=== PATIENT | male | born 1940 | race Caucasian/White ===

== ENCOUNTER 2016-12-30 09:54 | Observation (INO) | payer MEDICARE ==
[~2016-12-30] VITALS: Ht 180.3 cm; Wt 80.0 kg
[~2016-12-30 09:54] MED LIST: AMIO200T PO; CEFP500T PO; MAGN400T PO; METO25 PO; PERC5TAB12 PO; RISP.25 PO; RIVA10 PO
[2016-12-30 09:55] VITALS: BP 213/134; PULSE 88; RESP 20; TEMP 97.6; O2SAT 96
[2016-12-30 10:07] VITALS: O2SAT 100
[2016-12-30 10:10] VITALS: BP_SYST 104; BP_SYST 96; BP_DIAS 56; BP_DIAS 65; PULSE 70; RESP 15; O2SAT 100
[2016-12-30] MEDS ORDERED: ASPI81CH CHEW (10:12)
[2016-12-30] MEDS ORDERED: GABA300C5 PO (10:12)
[2016-12-30] MEDS ORDERED: TAMS0.4C4 PO (10:12)
[2016-12-30] MEDS ORDERED: SODIUM CHLORIDE 0.9% FLUSH 10 ML FLUSH IVF PRN (10:15)
[2016-12-30] MEDS ORDERED: ASPIRIN 81 MG CHEW TAB PO ONE (10:15)
--- NOTE | 2016-12-30 10:23 | PD ---
HPI Chief Complaint: Cardiac Complaint Time Seen by Provider: 10:04 Travel History International Travel<30 days: No Contact w/Intl Traveler<30days: No Traveled to known affect area: No History of Present Illness HPI 76-year-old male with history of mitral valve repair, here for evaluation of an episode of chest discomfort, lightheadedness, palpitations, and generalized weakness. The episode occurred about an hour ago while at work. He works at [employer]. He states he was not doing anything strenuous at onset of symptoms. Symptoms lasted for about 30 minutes. Upon arrival to the emergency department he states symptoms have improved. Currently he denies having any chest discomfort. He was short of breath during this episode, however is currently denying shortness of breath. No fevers, chills, cough, or recent illness. No paresthesias or motor deficits. No history of DVT or PE. He takes aspirin 81 mg daily. His insecticide sprayer is Dr. Stevenson. [facility] Past Medical History Atrial Fibrillation: Yes Autoimmune Disease: No Heart Rhythm Problems: Yes Cancer: Yes (SKIN) Cardiovascular Problems: Yes (cabg) Cerebrovascular Accident: Yes Diminished Hearing: No Hypertension: Yes Kidney Stones: Yes (2005,2007) Neurologic: Yes (TREMORS AT NIGHT STARTING AFTER THE OPERATION.) Respiratory: Yes Pneumonia: Yes Past Surgical History Abdominal Surgery: No Cardiac Surgery: Yes (MITRAL VAVLE REPLACE) Coronary Artery Bypass Graft: Yes Endocrine Surgery: Yes (KIDNEY STONES) Eye Surgery: Yes (LASIK PERMANENT CONTACTS) Genitourinary Surgery: Yes (LITHOTRIPSY) Valve Replacement: Yes (valve repair, maybe mitral ) Other Surgery: Yes (SKIN CA REMOVAL) Social History Alcohol Use: No Tobacco Use: No Substance Use: No Allergies-Medications (Allergen,Severity, Reaction): Coded Allergies: acetaminophen (Unverified Allergy, Mild, GI UPSET, 11/14/16) DENIES ALLERGY hydrocodone (Unverified Allergy, Mild, GI UPSET, 11/14/16) DENIES ALLERGY Reported Meds & Prescriptions Reported Meds & Active Scripts Active Reported Gabapentin 300 Mg Cap 300 Mg PO BID Tamsulosin (Tamsulosin HCl) 0.4 Mg Cap 0.4 Mg PO HS Aspirin 81 Mg Chew 81 Mg CHEW DAILY Review of Systems Except as stated in HPI: all other systems reviewed are Neg Physical Exam Narrative GENERAL: Well-developed, well-nourished, awake, alert, no apparent distress. SKIN: Focused skin assessment warm/dry. HEAD: Atraumatic. Normocephalic. EYES: Pupils equal and round. No scleral icterus. No injection or drainage. ENT: No nasal bleeding or discharge. Mucous membranes pink and moist. Perioral cyanosis. NECK: Trachea midline. No JVD. CARDIOVASCULAR: Regular rate and rhythm. Distal pulses brisk and equal bilaterally. RESPIRATORY: No accessory muscle use. Clear to auscultation. Breath sounds equal bilaterally. GASTROINTESTINAL: Abdomen soft, non-tender, nondistended. MUSCULOSKELETAL: No obvious deformities. No clubbing. No cyanosis. No edema. NEUROLOGICAL: Awake and alert. No obvious cranial nerve deficits. Motor grossly within normal limits. Normal speech. PSYCHIATRIC: Appropriate mood and affect; insight and judgment normal. Data Data Last Documented VS Vital Signs Date Time Temp Pulse Resp B/P (MAP) Pulse Ox O2 Delivery O2 Flow Rate FiO2 12/30/16 10:10 70 15 96/56 (69) 100 Room Air 104/65 (78) 12/30/16 09:55 97.6 Orders Orders Electrocardiogram (12/30/16 10:11) Basic Metabolic Panel (Bmp) (12/30/16 10:11) B-Type Natriuretic Peptide (12/30/16 10:11) Ckmb (Isoenzyme) Profile (12/30/16 10:11) Complete Blood Count With Diff (12/30/16 10:11) Magnesium (Mg) (12/30/16 10:11) Prothrombin Time / Inr (Pt) (12/30/16 10:11) Act Partial Throm Time (Ptt) (12/30/16 10:11) Troponin I (12/30/16 10:11) Chest, Single Ap (12/30/16 10:11) Ecg Monitoring (12/30/16 10:11) Iv Access Insert/Monitor (12/30/16 10:11) Oximetry (12/30/16 10:11) Aspirin Chew (Aspirin Chew) (12/30/16 10:15) Sodium Chloride 0.9% Flush (Ns Flush) (12/30/16 10:15) Arterial Blood Gas (Abg) (12/30/16 ) CKMB (12/30/16 10:15) CKMB% (12/30/16 10:15) Labs Laboratory Tests Test 12/30/16 10:14 12/30/16 10:15 Blood Gas Puncture Site LT RADIAL Blood Gas Patient Temperature 98.6 Blood Gas HCO3 20 mmol/L Blood Gas Base Excess -3.5 mmol/L Blood Gas Oxygen Saturation 96 % Arterial Blood pH 7.43 Arterial Blood Partial Pressure CO2 31 mmHg Arterial Blood Partial Pressure O2 91 mmHG Arterial Blood Oxygen Content 18.8 Vol % Arterial Blood Carboxyhemoglobin 1.1 % Arterial Blood Methemoglobin 0.4 % Blood Gas Hemoglobin 13.8 G/DL Blood Gas Inspired Oxygen 21 % White Blood Count 7.2 TH/MM3 Red Blood Count 4.48 MIL/MM3 Hemoglobin 14.5 GM/DL Hematocrit 43.1 % Mean Corpuscular Volume 96.0 FL Mean Corpuscular Hemoglobin 32.4 PG Mean Corpuscular Hemoglobin Concent 33.8 % Red Cell Distribution Width 13.5 % Platelet Count 164 TH/MM3 Mean Platelet Volume 9.0 FL Neutrophils (%) (Auto) 76.0 % Lymphocytes (%) (Auto) 13.5 % Monocytes (%) (Auto) 7.7 % Eosinophils (%) (Auto) 2.3 % Basophils (%) (Auto) 0.5 % Neutrophils # (Auto) 5.5 TH/MM3 Lymphocytes # (Auto) 1.0 TH/MM3 Monocytes # (Auto) 0.6 TH/MM3 Eosinophils # (Auto) 0.2 TH/MM3 Basophils # (Auto) 0.0 TH/MM3 CBC Comment DIFF FINAL Differential Comment Prothrombin Time 10.4 SEC Prothromb Time International Ratio 0.9 RATIO Activated Partial Thromboplast Time 27.3 SEC Blood Urea Nitrogen 15 MG/DL Creatinine 1.32 MG/DL Random Glucose 98 MG/DL Calcium Level 9.1 MG/DL Magnesium Level 2.1 MG/DL Sodium Level 140 MEQ/L Potassium Level 4.3 MEQ/L Chloride Level 110 MEQ/L Carbon Dioxide Level 25.0 MEQ/L Anion Gap 5 MEQ/L Estimat Glomerular Filtration Rate 53 ML/MIN Total Creatine Kinase 141 U/L Creatine Kinase MB 1.6 NG/ML Troponin I LESS THAN 0.02 NG/ML B-Type Natriuretic Peptide 84 PG/ML MDM Medical Decision Making Medical Screen Exam Complete: Yes Emergency Medical Condition: Yes Medical Record Reviewed: Yes Interpretation(s) EKG: Sinus, rate 72, normal axis, normal intervals, no acute ischemic abnormality, peaked T waves in V4 through V6. Differential Diagnosis ACS, pneumothorax with peritonitis, PE, pneumonia, metabolic abnormality, methemoglobinemia, anemia Narrative Course Initial vital signs show heart rate 88, blood pressure 213/134, pulse ox 96% on room air, oral temp of 97.6F. When the patient was brought back to her room from triage, repeat vital signs show blood pressure 96/56 in the right upper extremity, 104/65 in the left upper extremity. CBC is unremarkable. BMP is remarkable for creatinine 1.32, GFR 53 which is around his baseline. BNP is 84. Cardiac enzymes are negative. ABG shows pH 7.43, PCO2 31, PO2 91, methemoglobin 0.4%. Chest x-ray shows no acute cardio pulmonary disease. Patient was provided aspirin. On reassessment he reports he is feeling improved and is completely asymptomatic. He no longer has perioral cyanosis. Both patient and the patient's family were made aware of all findings. I believe he is a good candidate for further cardiac evaluation in the chest pain center. He is amenable to this plan. Diagnosis Primary Impression: Chest pain Qualified Codes: R07.9 - Chest pain, unspecified Admitting Information Admitting Physician Requests: Jasen Schmid MD Dec 30, 2016 10:23
[2016-12-30 10:27] LABS: BLOOD GAS BASE EXCESS -3.5 mmol/L (-2-2); BLOOD GAS CARBOXYHEMOGLOBIN 1.1 % (0-4); BLOOD GAS HCO3 20 mmol/L (22-26); BLOOD GAS METHEMOGLOBIN 0.4 % (0-2); BLOOD GAS O2 HGB SATURATION 96 % (90-100); BLOOD GAS OXYGEN CONTENT 18.8 Vol % (12.0-20.0); BLOOD GAS PCO2 31 mmHg (38-42); BLOOD GAS PO2 91 mmHG (61-120); BLOOD GAS TOTAL HGB 13.8 G/DL (12.0-16.0); CRITICAL VALUE NO; DRAW SITE LT RADIAL; FIO2 21 %; NUMBER OF ARTERIAL PUNCTURES 1; STAT YES; TEMP CORR TO 98.6; ULNAR PULSE PRESENT
[2016-12-30 10:33] LABS: AUTOMATED NEUTROPHIL # 5.5 TH/MM3 (1.8-7.7); BASOPHIL % 0.5 % (0.0-2.0); EOSINOPHIL # 0.2 TH/MM3 (0-0.4); EOSINOPHIL % 2.3 % (0.0-4.0); HEMATOCRIT 43.1 % (39.0-51.0); HEMO FLAGS DIFF FINAL; LYMPH % 13.5 % (9.0-44.0); MEAN CORPUSCULAR HEMOGLOBIN 32.4 PG (27.0-34.0); MEAN CORPUSCULAR HGB CONC 33.8 % (32.0-36.0); MONO % 7.7 % (0.0-8.0); PLATELET COUNT 164 TH/MM3 (150-450); RED BLOOD COUNT 4.48 MIL/MM3 (4.50-5.90); RED CELL DISTRIBUTION WIDTH 13.5 % (11.6-17.2); WHITE BLOOD COUNT 7.2 TH/MM3 (4.0-11.0)
[2016-12-30 10:42] LABS: APTT (PATIENT) 27.3 SEC (24.3-30.1); INTERNATIONAL NORMALIZED RATIO 0.9 RATIO; PROTHROMBIN TIME - PATIENT 10.4 SEC (9.8-11.6)
[2016-12-30 10:47] LABS: ANION GAP 5 MEQ/L (5-15); BLOOD UREA NITROGEN 15 MG/DL (7-18); CHLORIDE 110 MEQ/L (98-107); GLOMERULAR FILTRATION RATE 53 ML/MIN (>89); MAGNESIUM 2.1 MG/DL (1.5-2.5); POTASSIUM 4.3 MEQ/L (3.5-5.1); SODIUM (NA) 140 MEQ/L (136-145)
[2016-12-30 10:50] LABS: CREATINE KINASE 141 U/L (39-308)
--- NOTE | 2016-12-30 10:57 | RADRPT ---
EXAM DATE/TIME: 12/30/2016 10:31 [place] COMPARISON: No previous studies available for comparison. INDICATIONS : Lightheaded and dizzy with a feeling of syncope. MEDICAL HISTORY : None. SURGICAL HISTORY : Valve repair, unspecified. ENCOUNTER: Initial ACUITY: 1 day PAIN SCORE: 0/10 LOCATION: Bilateral chest FINDINGS: A single view of the chest demonstrates the lungs to be symmetrically aerated without evidence of mas s, infiltrate or effusion. Multiple intact median sternotomy wires. The heart size is normal.. [place] us structures are intact. CONCLUSION: No acute disease. Deena Dietrich MD on December 30, 2016 at 10:55 Board Certified Radiologist. This report was verified electronically.
[2016-12-30 11:03] LABS: CKMB 1.6 NG/ML (0.5-3.6)
--- NOTE | 2016-12-30 11:37 | EKG ---
Date Performed: 12/30/2016 Time Performed: 10:11:30 PTAGE: 76 years EKG: Sinus rhythm POSSIBLE LEFT ATRIAL ENLARGEMENT BORDERLINE ECG NO PREVIOUS TRACING DOCTOR: Thor Guerrero Interpretating Date/Time 12/30/2016 11:35:49
[2016-12-30] MEDS ORDERED: ACETAMINOPHEN 500 MG CPLT PO PRN (12:30)
[2016-12-30] MEDS ORDERED: ACETAMINOPHEN/HYDROcodone 325 MG/7.5 MG TAB PO PRN (12:30)
[2016-12-30] MEDS ORDERED: SODIUM CHLORIDE 0.9% FLUSH 5 ML FLUSH IVF PRN (12:30)
[2016-12-30] MEDS ORDERED: ONDANSETRON HCL 4 MG/2 ML VIAL IV PRN (12:30)
--- NOTE | 2016-12-30 12:33 | HHI.HP ---
[facility] Primary Care Physician Jorge Mayes M.D. Chief Complaint Heart racing History of Present Illness This is a 76-year-old male with history of mitral valve repair May 2012 that presents to ED via private vehicle with a complaint of feeling dizzy, diaphoretic, and sensation of heart racing. There was no syncopal event. This began while he was at work this morning. Symptoms last about 30 minutes. He was mildly short of breath. No nausea. Can't recall having these type symptoms in the past however upon review records she had atrial fibrillation postop and was on amiodarone for short time after that discharge. States that he really cannot recall much of what happened during that hospitalization. Denies having any chest discomfort with his symptoms today. Follows Dr. Stevenson. States he saw him this year. States he was told that his valve is looking good. Denies recent illnesses. Denies fevers or chills. Patient had heart catheterization prior to having the mitral valve repaired. Heart catheterization performed 05/01/[address] Stevenson revealed normal coronaries. Review of Systems General: Patient denies fevers, chills recent, and recent travel HEENT: Patient denies headache, sore throat, difficulty swallowing. Cardiovascular: Denies chest discomfort as mentioned above. He was feeling dizzy and diaphoretic. Had sensation of heart beating rapidly. No syncope. Respiratory: States it is mildly short of breath. Denies inspirational chest discomfort. Denies coughing wheezing or hemoptysis. GI: Patient denies nausea, vomiting, diarrhea, abdominal pain, bloody stools. Musculoskeletal: Patient denies joint pain or edema. Denies calf pain or edema. Neurovascular: Patient denies numbness, tingling, weakness in extremities. Denies headache. Endocrine: Denies polyuria and polydipsia. Hematologic: Denies easy bruising. Skin: Denies rash or itching. Past Family Social History Allergies: Coded Allergies: acetaminophen (Unverified Allergy, Mild, GI UPSET, 11/14/16) DENIES ALLERGY hydrocodone (Unverified Allergy, Mild, GI UPSET, 11/14/16) DENIES ALLERGY Past Medical History History of mitral valve repair in 2012. Episode of atrial fibrillation and was on amiodarone from that hospitalization. Cannot recall being in the arrhythmia since. Has history of BPH. Denies hypertension, hyperlipidemia, diabetes, and CAD. Past Surgical History Mitral valve repair in 2012. Cardiac catheterization revealing normal coronaries prior to that repair. Reported Medications Reported Meds & Active Scripts Active Reported Gabapentin 300 Mg Cap 300 Mg PO BID Tamsulosin (Tamsulosin HCl) 0.4 Mg Cap 0.4 Mg PO HS Aspirin 81 Mg Chew 81 Mg CHEW DAILY Active Ordered Medications Current Medications Medications (Trade) Dose Ordered Sig/Thien Route Start Time Stop Time Status Last Admin (NS Flush) 2 ml UNSCH PRN IVF 12/30/16 10:15 (NS Flush) 2 ml UNSCH PRN IVF 12/30/16 12:30 UNV (NS Flush) 2 ml BID IVF 12/30/16 21:00 UNV (Tylenol) 500 mg Q4H PRN PO 12/30/16 12:30 UNV ([place]son 7.5-325 Mg) 1 tab Q4H PRN PO 12/30/16 12:30 UNV (Zofran Inj) 4 mg Q6H PRN IV 12/30/16 12:30 UNV (Aspirin) 325 mg DAILY PO 12/31/16 09:00 UNV Family History Denies family history of CAD. Social History Patient is a lifetime nonsmoker. Denies alcohol or illicit drugs. Physical Exam Vital Signs Vital Signs Date Time Temp Pulse Resp B/P (MAP) Pulse Ox O2 Delivery O2 Flow Rate FiO2 12/30/16 10:10 70 15 96/56 (69) 100 Room Air 104/65 (78) 12/30/16 10:07 100 Room Air 12/30/16 10:06 17 12/30/16 09:55 97.6 88 20 213/134 (160) 96 Physical Exam GENERAL: This is a well-nourished, well-developed patient, in no apparent distress. Patient speaks in clear complete sentences. Patient is pleasant. HEENT: Head is atraumatic and normocephalic. Neck is supple without lymphadenopathy and trachea is midline. No JVD or carotid bruits. CARDIOVASCULAR: Grade 2 systolic murmur left sternal border. Regular rate and rhythm without gallops or rubs. RESPIRATORY: Clear to auscultation. Breath sounds equal bilaterally. No wheezes , rales, or rhonchi. Chest wall is nontender. No use of accessory muscles. Well-healed midline scar over sternum from prior sternotomy. GASTROINTESTINAL: Abdomen is nontender, nondistended. Abdomen soft. No obvious pulsatile mass or bruit. No CVA tenderness. Strong femoral pulses bilaterally. Normal bowel sounds in all quadrants. MUSCULOSKELETAL: Patient is moving upper and lower extremities freely. No calf tenderness or edema, no Homans sign. Strong pulses in upper and lower extremities. NEUROLOGICAL: Patient is alert and oriented. Cranial nerves 2-12 are grossly intact. No focal deficits and speech is clear. SKIN: No rash and turgor is normal. Laboratory Laboratory Tests Test 12/30/16 10:14 12/30/16 10:15 Blood Gas Puncture Site LT RADIAL Blood Gas Patient Temperature 98.6 Blood Gas HCO3 20 Blood Gas Base Excess -3.5 Blood Gas Oxygen Saturation 96 Arterial Blood pH 7.43 Arterial Blood Partial Pressure CO2 31 Arterial Blood Partial Pressure O2 91 Arterial Blood Oxygen Content 18.8 Arterial Blood Carboxyhemoglobin 1.1 Arterial Blood Methemoglobin 0.4 Blood Gas Hemoglobin 13.8 Blood Gas Inspired Oxygen 21 White Blood Count 7.2 Red Blood Count 4.48 Hemoglobin 14.5 Hematocrit 43.1 Mean Corpuscular Volume 96.0 Mean Corpuscular Hemoglobin 32.4 Mean Corpuscular Hemoglobin Concent 33.8 Red Cell Distribution Width 13.5 Platelet Count 164 Mean Platelet Volume 9.0 Neutrophils (%) (Auto) 76.0 Lymphocytes (%) (Auto) 13.5 Monocytes (%) (Auto) 7.7 Eosinophils (%) (Auto) 2.3 Basophils (%) (Auto) 0.5 Neutrophils # (Auto) 5.5 Lymphocytes # (Auto) 1.0 Monocytes # (Auto) 0.6 Eosinophils # (Auto) 0.2 Basophils # (Auto) 0.0 CBC Comment DIFF FINAL Differential Comment Prothrombin Time 10.4 Prothromb Time International Ratio 0.9 Activated Partial Thromboplast Time 27.3 Blood Urea Nitrogen 15 Creatinine 1.32 Random Glucose 98 Calcium Level 9.1 Magnesium Level 2.1 Sodium Level 140 Potassium Level 4.3 Chloride Level 110 Carbon Dioxide Level 25.0 Anion Gap 5 Estimat Glomerular Filtration Rate 53 Total Creatine Kinase 141 Creatine Kinase MB 1.6 Troponin I LESS THAN 0.02 B-Type Natriuretic Peptide 84 Result Diagram: 12/30/16 1015 12/30/16 1015 Imaging Initial EKG is sinus rhythm without significant ST segment depressions or elevations. Caprini VTE Risk Assessment Caprini VTE Risk Assessment: Mod/High Risk (score >= 2) Caprini Risk Assessment Model Point Value = 1 Point Value = 2 Point Value = 3 Point Value = 5 Age 41-60 Minor surgery BMI > 25 kg/m2 Swollen legs Varicose veins or History of unexplained or recurrent spontaneous Oral contraceptives or hormone replacement Sepsis (< 1 month) Serious lung disease, including pneumonia (< 1 month) Abnormal pulmonary function Acute myocardial infarction Congestive heart failure (< 1 month) History of inflammatory bowel disease Medical patient at bed rest Age 61-74 Arthroscopic surgery Major open surgery (> 45 min) Laparoscopic surgery (> 45 min) Malignancy Confined to bed (> 72 hours) Immobilizing plaster cast Central venous access Age >= 75 History of VTE Family history of VTE Factor V Leiden Prothrombin [id number] Lupus anticoagulant Anticardiolipin antibodies Elevated serum homocysteine Heparin-induced thrombocytopenia Other congenital or acquired thrombophilia Stroke (< 1 month) Elective arthroplasty Hip, pelvis, or leg fracture Acute spinal cord injury (< 1 month) Prophylaxis Regimen Total Risk Factor Score Risk Level Prophylaxis Regimen 0-1 Low Early ambulation 2 Moderate Order ONE of the following: *Sequential Compression Device (SCD) *Heparin 5000 units SQ BID 3-4 Higher Order ONE of the following medications: *Heparin 5000 units SQ TID *Enoxaparin/Lovenox 40 mg SQ daily (WT < 150 kg, CrCl > 30 mL/min) *Enoxaparin/Lovenox 30 mg SQ daily (WT < 150 kg, CrCl > 10-29 mL/min) *Enoxaparin/Lovenox 30 mg SQ BID (WT < 150 kg, CrCl > 30 mL/min) AND/OR *Sequential Compression Device (SCD) 5 or more Highest Order ONE of the following medications: *Heparin 5000 units SQ TID (Preferred with Epidurals) *Enoxaparin/Lovenox 40 mg SQ daily (WT < 150 kg, CrCl > 30 mL/min) *Enoxaparin/Lovenox 30 mg SQ daily (WT < 150 kg, CrCl > 10-29 mL/min) *Enoxaparin/Lovenox 30 mg SQ BID (WT < 150 kg, CrCl > 30 mL/min) AND *Sequential Compression Device (SCD) Assessment and Plan Assessment and Plan * Palpitations: Patient denies chest discomforts. He will be seen by Dr. Gonzalez of cardiology in the chest pain center and likely will be no stress testing. Had normal coronaries on heart catheterization April 2012. Patient describes heart racing, diaphoresis, and feeling dizzy which may be related to arrhythmias. Reviewing the monitor, there is sinus rhythm to sinus arrhythmia with occasional PVC. Patient likely be discharged home with instructions to follow-up with his reel winder within the next 2-3 days but return to ED for interval issues. The patient and his family do not want to start Xarelto at this time and will defer until further discussion with Dr. Stevenson. * BPH: Continue current medication. * History of mitral valve repair: Continue follow-up with his reel winder Dr. Stevenson. Patient is stable at this time. He is agreeable to this plan. Brodie Eugene Dec 30, 2016 12:33
[2016-12-30 13:32] VITALS: BP 115/64; PULSE 57; RESP 17; TEMP 97.8; O2SAT 100
[2016-12-30 13:56] LABS: CREATINE KINASE 113 U/L (39-308)
--- NOTE | 2016-12-30 14:05 | HHI.DCPOC ---
Discharge Care Plan Diagnosis: (1) Palpitations Goals to Promote Your Health * To prevent worsening of your condition and complications * To maintain your health at the optimal level Directions to Meet Your Goals Take your medications as prescribed Follow your dietary instruction Follow activity as directed Keep your appointments as scheduled Take your immunizations and boosters as scheduled If your symptoms worsen call your PCP, if no PCP go to Urgent Care Center or Emergency Room Smoking is Dangerous to Your Health. Avoid second hand smoke Call the 24-hour hour crisis hotline for domestic abuse at Brodie Eugene Dec 30, 2016 14:04
[2016-12-30 14:09] LABS: CKMB 1.2 NG/ML (0.5-3.6)
[2016-12-30] MEDS ORDERED: SODIUM CHLORIDE 0.9% FLUSH 5 ML FLUSH IVF SCH (21:00)
[2016-12-31] MEDS ORDERED: ASPIRIN 325 MG TAB PO SCH (09:00)
--- NOTE | 2016-12-31 10:50 | EKG ---
Date Performed: 12/30/2016 Time Performed: 13:38:15 PTAGE: 76 years EKG: ECTOPIC ATRIAL BRADYCARDIA ABNORMAL RHYTHM ECG POOR R WAVE PROGRESSION NO SIG CHANGE PREVIOUS TRACING : 12/30/2016 10.11 DOCTOR: Gonsalo Gonzalez Interpretating Date/Time 12/31/2016 10:48:39
== END 2016-12-30 14:59 | disposition home or self-care (01) ==
LOC: NEPE 09:54 → NEDA 11:29 → NEPGCP 13:03
PROVIDERS: ADMIT Internal Medicine Interventional Cardiology; ATTEND Internal Medicine Interventional Cardiology
DX: R00.2 Palpitations (principal); R07.9 Chest pain, unspecified; I49.3 Ventricular premature depolarization; I10 Essential (primary) hypertension; Z86.73 Personal history of transient ischemic attack (TIA), and cerebral infarction without residual deficits; Z95.1 Presence of aortocoronary bypass graft; Z87.442 Personal history of urinary calculi
CPT/HCPCS: 36600; 71010; 80048; 82550; 82552; 82805; 83735; 83880; 84484; 85025; 85610; 85730; 93005; 99285; G0378

== ENCOUNTER 2017-01-03 13:45 | Emergency (ER) | payer MEDICARE ==
[~2017-01-03] VITALS: Ht 180.3 cm; Wt 80.0 kg
[~2017-01-03 13:45] MED LIST changes: -AMIO200T PO; +ASPI81CH CHEW; -CEFP500T PO; +GABA300C5 PO; -MAGN400T PO; -METO25 PO; -PERC5TAB12 PO; -RISP.25 PO; -RIVA10 PO; +TAMS0.4C4 PO
[2017-01-03 13:47] VITALS: BP 121/71; PULSE 76; RESP 16; TEMP 98.5; O2SAT 98
--- NOTE | 2017-01-03 13:57 | PD ---
Physical Exam Date Seen by Provider: Jan 03, 2017 Time Seen by Provider: 13:55 Narrative 76 yo male here for evaluation of rectal bleeding. Per patient had a bloody stool. Not sure if clots or blood. But he was concerned. Feels weak. No pain. Recently seen last weekend for chest pain. Vitals stable in triage. Awaiting bed placement. Data Data Last Documented VS Vital Signs Date Time Temp Pulse Resp B/P (MAP) Pulse Ox O2 Delivery O2 Flow Rate FiO2 01/03/17 13:47 98.5 76 16 121/71 (88) 98 Room Air Orders Orders Complete Blood Count With Diff (01/03/17 13:54) Comprehensive Metabolic Panel (01/03/17 13:54) Prothrombin Time / Inr (Pt) (01/03/17 13:54) Act Partial Throm Time (Ptt) (01/03/17 13:54) Lipase (01/03/17 13:54) Type And Screen (01/03/17 13:54) MDM Medical Record Reviewed: Yes Supervised Visit with KULWINDER: Rip Vargas Jan 03, 2017 13:57
[2017-01-03 14:33] LABS: AUTOMATED NEUTROPHIL # 6.4 TH/MM3 (1.8-7.7); BASOPHIL % 0.4 % (0.0-2.0); EOSINOPHIL # 0.3 TH/MM3 (0-0.4); EOSINOPHIL % 3.2 % (0.0-4.0); HEMATOCRIT 42.8 % (39.0-51.0); HEMO FLAGS DIFF FINAL; LYMPH % 14.9 % (9.0-44.0); LYMPHOCYTE # 1.3 TH/MM3 (1.0-4.8); MEAN CELL VOLUME 96.5 FL (80.0-100.0); MEAN CORPUSCULAR HEMOGLOBIN 32.6 PG (27.0-34.0); MEAN CORPUSCULAR HGB CONC 33.8 % (32.0-36.0); MONO % 5.5 % (0.0-8.0); PLATELET COUNT 151 TH/MM3 (150-450); RED BLOOD COUNT 4.44 MIL/MM3 (4.50-5.90); RED CELL DISTRIBUTION WIDTH 13.3 % (11.6-17.2); WHITE BLOOD COUNT 8.5 TH/MM3 (4.0-11.0)
[2017-01-03 14:44] LABS: APTT (PATIENT) 27.1 SEC (24.3-30.1); INTERNATIONAL NORMALIZED RATIO 0.9 RATIO; PROTHROMBIN TIME - PATIENT 10.3 SEC (9.8-11.6)
[2017-01-03 15:00] LABS: ANION GAP 9 MEQ/L (5-15); AST (GOT) 30 U/L (15-37); BICARBONATE 24.2 MEQ/L (21.0-32.0); BLOOD UREA NITROGEN 14 MG/DL (7-18); CHLORIDE 109 MEQ/L (98-107); GLOMERULAR FILTRATION RATE 66 ML/MIN (>89); POTASSIUM 3.9 MEQ/L (3.5-5.1); SODIUM (NA) 142 MEQ/L (136-145)
[2017-01-03 15:04] LABS: ALKALINE PHOSPHATASE 86 U/L (45-117); ALT (GPT) 31 U/L (12-78); TOTAL BILIRUBIN ADULT 0.7 MG/DL (0.2-1.0)
--- NOTE | 2017-01-03 16:03 | PD ---
HPI Chief Complaint: Bleeding Time Seen by Provider: 15:44 Travel History International Travel<30 days: No Contact w/Intl Traveler<30days: No Traveled to known affect area: No History of Present Illness HPI 76 year old male presents to the emergency department for evaluation of central rectal bleeding that occurred today. He states that this morning, about work, he noticed something wet in his underwear. He states that he had blood soaking through his underwear. Patient states that his stools have been lightly looser than normal. He states he has history of hemorrhoids approximately 40 years ago , but no current history. No fevers or chills. No chest pain or shortness of breath. No abdominal pain. No nausea, vomiting. Patient reports history cardiac bypass surgery, prostate cancer. He states he is on a baby aspirin daily, but no other blood thinners. He denies any alcohol intake. He denies any history of the same. Patient also denies taking any NSAIDs. He states he' s had a colonoscopy in the past, but not recently. PFSH Past Medical History Atrial Fibrillation: Yes Autoimmune Disease: No Heart Rhythm Problems: Yes Cancer: Yes (SKIN) Cardiovascular Problems: Yes (CABG) High Cholesterol: No Congestive Heart Failure: No Cerebrovascular Accident: Yes Diabetes: No Diminished Hearing: No Hypertension: Yes Kidney Stones: Yes (2005,2007) Neurologic: Yes (TREMORS AT NIGHT STARTING AFTER THE OPERATION.) Respiratory: Yes Pneumonia: Yes Past Surgical History Abdominal Surgery: No Cardiac Surgery: Yes (MITRAL VAVLE REPLACE) Coronary Artery Bypass Graft: Yes Endocrine Surgery: Yes (KIDNEY STONES) Eye Surgery: Yes (LASIK PERMANENT CONTACTS) Genitourinary Surgery: Yes (LITHOTRIPSY) Valve Replacement: Yes (valve repair, maybe mitral ) Other Surgery: Yes (SKIN CA REMOVAL) Social History Alcohol Use: No Tobacco Use: No Substance Use: No Allergies-Medications (Allergen,Severity, Reaction): Coded Allergies: No Known Allergies (Unverified , 01/03/17) Reported Meds & Prescriptions Reported Meds & Active Scripts Active Reported Gabapentin 300 Mg Cap 300 Mg PO BID Tamsulosin (Tamsulosin HCl) 0.4 Mg Cap 0.4 Mg PO HS Aspirin 81 Mg Chew 81 Mg CHEW DAILY Review of Systems Except as stated in HPI: all other systems reviewed are Neg Physical Exam Narrative GENERAL: Well-nourished, well-developed elderly male patient, afebrile. SKIN: Focused skin assessment warm/dry. HEAD: Normocephalic. Atraumatic. EYES: No scleral icterus. No injection or drainage. NECK: Supple, trachea midline. No JVD or lymphadenopathy. CARDIOVASCULAR: Regular rate and rhythm without murmurs, gallops, or rubs. RESPIRATORY: Breath sounds equal bilaterally. No accessory muscle use. Lungs sounds are clear to auscultation. GASTROINTESTINAL: Abdomen soft, non-tender, nondistended. MUSCULOSKELETAL: No cyanosis, or edema. BACK: Nontender without obvious deformity. No CVA tenderness. RECTAL EXAM: No masses or tenderness. Light pink noted on my finger after rectal exam. Hemoccult is grossly positive. This exam was done with NILESH Dougherty , at bedside. Data Data Last Documented VS Vital Signs Date Time Temp Pulse Resp B/P (MAP) Pulse Ox O2 Delivery O2 Flow Rate FiO2 01/03/17 16:40 59 16 140/84 (102) 98 Room Air 01/03/17 13:47 98.5 Orders Orders Complete Blood Count With Diff (01/03/17 13:54) Comprehensive Metabolic Panel (01/03/17 13:54) Prothrombin Time / Inr (Pt) (01/03/17 13:54) Act Partial Throm Time (Ptt) (01/03/17 13:54) Lipase (01/03/17 13:54) Type And Screen (01/03/17 13:54) Pantoprazole (Protonix) (01/03/17 17:00) Labs Laboratory Tests Test 01/03/17 14:00 White Blood Count 8.5 TH/MM3 Red Blood Count 4.44 MIL/MM3 Hemoglobin 14.5 GM/DL Hematocrit 42.8 % Mean Corpuscular Volume 96.5 FL Mean Corpuscular Hemoglobin 32.6 PG Mean Corpuscular Hemoglobin Concent 33.8 % Red Cell Distribution Width 13.3 % Platelet Count 151 TH/MM3 Mean Platelet Volume 9.2 FL Neutrophils (%) (Auto) 76.0 % Lymphocytes (%) (Auto) 14.9 % Monocytes (%) (Auto) 5.5 % Eosinophils (%) (Auto) 3.2 % Basophils (%) (Auto) 0.4 % Neutrophils # (Auto) 6.4 TH/MM3 Lymphocytes # (Auto) 1.3 TH/MM3 Monocytes # (Auto) 0.5 TH/MM3 Eosinophils # (Auto) 0.3 TH/MM3 Basophils # (Auto) 0.0 TH/MM3 CBC Comment DIFF FINAL Differential Comment Prothrombin Time 10.3 SEC Prothromb Time International Ratio 0.9 RATIO Activated Partial Thromboplast Time 27.1 SEC Blood Urea Nitrogen 14 MG/DL Creatinine 1.08 MG/DL Random Glucose 132 MG/DL Total Protein 6.7 GM/DL Albumin 3.7 GM/DL Calcium Level 9.1 MG/DL Alkaline Phosphatase 86 U/L Aspartate Amino Transf (AST/SGOT) 30 U/L Alanine Aminotransferase (ALT/SGPT) 31 U/L Total Bilirubin 0.7 MG/DL Sodium Level 142 MEQ/L Potassium Level 3.9 MEQ/L Chloride Level 109 MEQ/L Carbon Dioxide Level 24.2 MEQ/L Anion Gap 9 MEQ/L Estimat Glomerular Filtration Rate 66 ML/MIN Lipase 159 U/L MDM Medical Decision Making Medical Screen Exam Complete: Yes Emergency Medical Condition: Yes Medical Record Reviewed: Yes Differential Diagnosis Lower GI bleeding versus upper GI bleeding versus hemorrhoids versus anemia Narrative Course 76-year-old male presents to the emergency department for evaluation of rectal bleeding that occurred 1 today. He appears well on exam. CBC shows hemoglobin 14.5, hematocrit 42.8. CMP shows no acute abnormality. Coags are unremarkable. Hemoccult is positive. Clinical Faculty recreation director is paged. I spoke to Dr. Marina who agrees the patient can be seen outpatient. She states that he should make an appointment in the morning to be seen tomorrow. I discussed with the patient who agrees with this. He states he'll call the office in the morning and be seen tomorrow. I did instructed return for any worsening symptoms at all. He verbalizes agreement. Patient is given Protonix 40 mg by mouth, he'll be discharged with the same. The patient was discharged in stable condition with instructions, including return instructions and follow up instructions. [facility] Point of Care Internal Pos. & Neg. Controls: Passed Fecal Specimen Occult Blood: Positive Diagnosis Primary Impression: Rectal bleed Referrals: Madison Marina MD 1 day Patient Instructions: General Instructions, Rectal Bleeding (ED) Additional Instructions: Take Protonix daily. Follow-up with Dr. Marina, bonus clerk, tomorrow. Call her office first thing in the morning to receive an appointment tomorrow. Return to the emergency department for any acute worsening of symptoms. Med/Other Pt SpecificInfo: Prescription(s) given Scripts Pantoprazole (Protonix) 40 Mg Tab 40 MG PO DAILY for Reflux, #30 TAB 0 Refills Prov: Manjula Hayden 01/03/17 Disposition: 01 DISCHARGE HOME Condition: Stable Manjula Hayden Jan 03, 2017 16:03
[2017-01-03 16:40] VITALS: BP 140/84; PULSE 59; RESP 16; O2SAT 98
[2017-01-03] MEDS ORDERED: PROT40TA PO (16:51)
[2017-01-03] MEDS ORDERED: PANTOPRAZOLE SOD 40 MG DELAYED RELEASE TAB PO ONE (17:00)
== END 2017-01-03 17:27 | disposition home or self-care (01) ==
LOC: NEPE 13:45
DX: K62.5 Hemorrhage of anus and rectum (principal); I25.10 Atherosclerotic heart disease of native coronary artery without angina pectoris; I10 Essential (primary) hypertension; Z95.1 Presence of aortocoronary bypass graft; I48.91 Unspecified atrial fibrillation; I34.1 Nonrheumatic mitral (valve) prolapse; Z95.2 Presence of prosthetic heart valve; Z79.82 Long term (current) use of aspirin
CPT/HCPCS: 80053; 83690; 85025; 85610; 85730; 86850; 86900; 86901; 99284

== ENCOUNTER 2017-06-05 16:42 | Emergency (ER) | payer MEDICARE ==
[~2017-06-05 16:42] MED LIST changes: +ASPI-516 CHEW; -ASPI81CH CHEW; +PROT40TA PO
== END 2017-06-05 16:52 | disposition left against medical advice (07) ==
LOC: NED 16:42
DX: R07.9 Chest pain, unspecified (principal)
CPT/HCPCS: 99281